=== PATIENT | female | born 1985 | race American Indian/Alaskan Native ===

== ENCOUNTER 2020-02-10 11:40 | Inpatient (IN) | payer SELFPAY ==
--- NOTE | 2020-02-10 11:50 | Event Note ---
ED Screening Note ED Screening Note: This is a 34-year-old female that presents with dizziness, nausea vomiting, left-sided facial tingling/numbness sensation as well as right leg numbness and tingling sensation. Patient denies any trauma or injuries. ExaM; normal neuro exam. Normal strength with no one-sided weakness noted. No facial drooping or slurred speech. Alert and oriented x3 This initial assessment/diagnostic orders/clinical plan/treatment(s) is/are subject to change based on patients health status, clinical progression and re- assessment by fellow clinical providers in the ED. Further treatment and workup at subsequent clinical providers discretion. Patient/guardian urged not to elope from the ED as their condition may be serious if not clinically assessed and managed. Initial orders include: 1-labs 2- UA
--- NOTE | 2020-02-10 12:00 | Emergency Department Report ---
ED General Adult HPI - General Chief complaint: Neuro Symptoms/Deficit Stated complaint: LT FACE NUMB/NAUSEA/DIZZY Time Seen by Provider: 02/10/20 11:49 Source: patient, RN notes reviewed Mode of arrival: Ambulatory Limitations: Physical Limitation - History of Present Illness Initial comments: The patient is a 34-year-old female. She is not known to myself previously. She states that she is not . She denies fever, cough, and exposure to the coronavirus. She states that she is not , and further reports that she has not delivered or given within the past 6 weeks. She does not have any long-term medical problems that she is aware of. She presents to the ER today with a complaint of feeling unsteady and ataxic, since waking up this morning, last night, she felt numbness on her right distal anterior tibial region. She also describes left-sided facial dysesthesias, which are basically resolved. There is no recent chiropractic manipulation, no recent trauma, she has no headache per se, but does describe bilateral pa racervical neck pain. There is no neck stiffness. There is no loss of vision, sore throat, chest pain, abdominal pain. She describes it as a sensation of having consumed alcohol, although she has not consumed alcohol. She is never had this before in the past. She does not have a history of hypertension that she is aware of. -: hour(s) Location: head, right, lower extremity Quality: other Consistency: other Improves with: other Worsens with: other Associated Symptoms: other - Related Data Allergies Allergy/AdvReac Type Severity Reaction Status Date / Time No Known Allergies Allergy Unverified 02/10/20 11:46 ED Review of Systems ROS: Stated complaint: LT FACE NUMB/NAUSEA/DIZZY Other details as noted in HPI Constitutional: denies: fever Eyes: denies: vision change ENT: denies: dental pain, other Respiratory: denies: wheezing Cardiovascular: denies: syncope Gastrointestinal: nausea. denies: abdominal pain Genitourinary: as per HPI Musculoskeletal: as per HPI Skin: as per HPI Neurological: as per HPI Psychiatric: as per HPI Hematological/Lymphatic: as per HPI ED Past Medical Hx - Past Medical History Previous Medical History?: Yes Hx Hypertension: Yes - Surgical History Past Surgical History?: No - Social History Smoking Status: Never Smoker Substance Use Type: None ED Physical Exam - General Limitations: Physical Limitation General appearance: alert, anxious, obese - Head Head exam: Present: atraumatic, normocephalic - Eye Eye exam: Present: normal appearance, PERRL, EOMI, other (Visual acuity intact to finger counting, color perception, reading at a close distance). Absent: nystagmus - ENT ENT exam: Present: normal exam, normal orophraynx, mucous membranes moist, normal external ear exam - Neck Neck exam: Present: normal inspection, full ROM. Absent: tenderness, meningismus - Respiratory Respiratory exam: Present: normal lung sounds bilaterally. Absent: respiratory distress - Cardiovascular Cardiovascular Exam: Present: regular rate, normal rhythm, normal heart sounds. Absent: bradycardia, tachycardia, irregular rhythm, systolic murmur, diastolic murmur, rubs, gallop - GI/Abdominal GI/Abdominal exam: Present: soft. Absent: distended, tenderness, guarding, rebound, rigid, pulsatile mass - Extremities Exam Extremities exam: Present: normal inspection, full ROM, other (2+ pulses noted in the bilateral upper and lower extremities. There is no palpable cord. negative Homans sign. Muscular compartments are soft. The pelvis is stable.). Absent: pedal edema, calf tenderness - Back Exam Back exam: Present: normal inspection, full ROM. Absent: tenderness, CVA tenderness (R), CVA tenderness (L), paraspinal tenderness, vertebral tenderness - Neurological Exam Neurological exam: Present: alert (There is no pronator drift. The patient has past-pointing in the bilateral upper extremities. [id number] is intact bilaterally.), oriented X3 (There is no facial droop. The tongue is midline. The extraocular movements are intact bilaterally. Speaking in complete sentences. Hearing is grossly intact bilaterally. V1, V2, V3 intact bilaterally.), other (No facial droop. Tongue midline. Extraocular movements intact bilaterally. Facial sensation intact to light touch in V1, V2, V3 distribution bilaterally. 5 and a 5 strength in 4 extremities. Sensation intact to light touch in 4 extremities.) - Psychiatric Psychiatric exam: Present: anxious - Skin Skin exam: Present: warm, dry, intact, normal color. Absent: rash ED Course Vital Signs 02/10/20 02/10/20 02/10/20 11:46 12:59 13:15 Temperature 97.8 F Pulse Rate 92 H 92 H 82 Respiratory 18 20 Rate Blood Pressure 256/138 216/121 223/117 O2 Sat by Pulse 96 96 Oximetry - Reevaluation(s) Reevaluation #1: 02/10/20 12:13 Differential diagnosis, including but not limited to: Subacute stroke, hypertensive emergency, posterior reversible hypertensive encephalopathy Assessment and plan: 34-year-old female who endorses right lower extremity numbness starting yesterday, woke up feeling with ataxia today, and subjective left-sided facial numbness, NIH score is is 2 for bilateral upper extremity past-pointing/ataxia, patient presents with wake-up symptoms, and neurologic symptoms started yesterday, therefore, neurologic symptoms present for greater than 4.5 hours, and the patient is not a candidate for TPA. Given extreme hypertension, Cardene drip will be ordered, noncontrast CT scan of the brain is ordered, code stroke called overhead, and we will obtain emergent neurology consultation. Her examination is unlikely to be consistent with a large vessel occlusion. 02/10/20 12:14 Reevaluation #2: 02/10/20 12:35 CT scan of the brain is interpreted as negative for acute findings. Patient interviewed by stroke neurologist, Dr. Teena Mims; she agrees that patient not a TPA candidate, does not require emergent CT angiogram imaging to evaluate for large vessel occlusion, aspirin, statin, aggressive blood pressure control are recommended. Hospital physician, Dr. Irene Moeller to admit Reevaluation #3: 02/10/20 13:13 Blood pressure 215-220, laboratory studies reviewed and appreciated. Patient is amenable to hospitalization at this time. Verbal order given to her nursing team to hold Cardene, initiate hydralazine, and reassess. Reevaluation #4: 02/10/20 13:30 History, physical, radiology findings, laboratory studies discussed with the hospital physician, Dr. Irene Moeller, who accepts the patient to the medical service. He indicates that he will further manage the patient's hypertension after hydralazine is administered in the emergency room. ED Medical Decision Making - Lab Data Result diagrams: 02/10/20 12:11 02/10/20 12:11 Vital Signs 02/10/20 11:46 Temperature 97.8 F Pulse Rate 92 H Respiratory 18 Rate Blood Pressure 256/138 O2 Sat by Pulse 96 Oximetry - EKG Data 02/10/20 13:04 Sinus rhythm, 91 bpm, normal axis, QTC 494 ms, poor R wave progression, left ventricular hypertrophy, atrial enlargement, the EKG is abnormal, numerous T wave abnormalities, the EKG is not consistent with a STEMI, the patient is not having chest pain - Radiology Data Radiology results: pending, report reviewed, image reviewed Print Report Referring Physician: SANDOR DAY Patient Name: RANDY PRUETT Date of : 1985 Sex: Female Report Date: 2020-02-10 Report Status: Finalized Findings [facility] [address] [place] [address] Cat Scan Report Signed Patient: RANDY PRUETT MR#: [id number] : 1985 Acct:[id number] Age/Sex: 34 / F ADM Date: 02/10/20 Loc: ED Attending Dr: Ordering Physician: SANDOR DAY NP Date of Service: 02/10/20 Procedure(s): CT head/brain wo con Accession Number(s): [id number] cc: SANDOR DAY NP CT head/brain wo con INDICATION / CLINICAL INFORMATION: 34 years Female; MAIN: CODE STROKE CALL [phone]. TECHNIQUE: Routine CT head without contrast. All CT scans at this location are performed using CT dose reduction for ALARA by means of automated exposure control. COMPARISON: None. FINDINGS: BRAIN / INTRACRANIAL CONTENTS: Small focus of decreased attenuation seen in the anterior gangliocapsular region on the left, almost in the corpus striatal pattern. Acute/subacute ischemic area cannot be excluded without diffusion imaging by MRI. Otherwise, no acute hemorrhage, mass effect, midline shift, hydrocephalus, or acute, large territorial infarct. No chronic infarct or atrophy appreciated. Nonspecific white matter disease suggested in the white matter of the frontal lobes. CRANIOCERVICAL JUNCTION: No significant abnormality. ORBITS: No significant abnormality of visualized orbits. SINUSES / MASTOIDS: No significant abnormality the visualized paranasal sinuses or mastoid air cells. ADDITIONAL FINDINGS: None. IMPRESSION: 1. No focal mass, hemorrhage, hydrocephalus, or acute, large territorial infarct. 2. Small acute/subacute area of ischemia near the left gangliocapsular region cannot entirely be excluded. Follow-up with diffusion imaging by MRI, as clinically warranted. This exam was performed as part of a code stroke protocol. The exam was completed on 02/10/2020 11:40 AM. The exam was reviewed at 11:[address] Valdivia was notified at 11:46 AM. Signer Name: Kwesi Seth MD, III Signed: 02/10/2020 12:48 PM Workstation Name: [id number] Transcribed By: HR Dictated By: Kwesi Seth MD Electronically Authenticated By: Kwesi Seth MD Signed Date/Time: 02/10/201247 DD/ 1243 Critical Care Time: Yes Critical care time in (mins) excluding proc time.: 60 Critical care attestation.: If time is entered above; I have spent that time in minutes in the direct care of this critically ill patient, excluding procedure time. ED Disposition Clinical Impression: Hypertensive emergency, Ataxia, Left facial numbness, Right leg numbness, CVA (cerebral vascular accident), Hypokalemia, Hypomagnesemia Disposition: DC-[id number] OP ADMIT IP TO THIS HOSP Is pt being admited?: Yes Condition: Fair Instructions: Hypertension (ED) - Assessment Assessment Interval: Baseline - Level of Consciousness 1a. Level of Consciousness: alert/keenly responsive - LOC Questions 1b. LOC Questions: answers both correctly - LOC Command 1c. LOC Commands: performs tasks correctly - Best Gaze 2. Best Gaze: normal - Visual 3. Visual: no visual loss - Facial Palsy 4. Facial Palsy: normal symmetrical movement - Motor Arm 5a. Motor Arm Left: no drift 5b. Motor Arm Right: no drift - Motor Leg 6a. Motor Leg Left: no drift 6b. Motor Leg Right: no drift - Limb Ataxia 7. Limb Ataxia: present 2 limbs - Sensory 8. Sensory: normal - Best Language 9. Best Language: no aphasia - Dysarthria 10. Dysarthria: normal - Extinction and Inattention 11. Extinction/Inattention: no abnormality - Scoring Total Score: 2 Stroke Severity: Minor Stroke
[2020-02-10] MEDS ORDERED: METOCLOPRAMIDE 10 MG/2 ML INJ IV ONE (12:08)
[2020-02-10 12:19] LABS: Basophils # (Auto) 0.1 K/mm3 (0.0-0.1); Basophils % (Auto) 0.8 % (0.0-1.8); Eosinophils % (Auto) 0.2 % (0.0-4.3); Hematocrit 39.8 % (30.3-42.9); Hemoglobin 13.6 gm/dl (10.1-14.3); Lymphocytes # (Auto) 1.3 K/mm3 (1.2-5.4); Mean Corpuscular HGB Conc 34 % (30-34); Mean Corpuscular Volume 85 fl (79-97); Monocytes # (Auto) 0.4 K/mm3 (0.0-0.8); Monocytes % (Auto) 4.6 % (0.0-7.3); Platelet Count 222 K/mm3 (140-440); Red Blood Count 4.68 M/mm3 (3.65-5.03)
[2020-02-10 12:31] LABS: INR 0.92 (0.87-1.13)
[2020-02-10 12:32] LABS: Partial Thromboplastin Time 25.4 Sec. (24.2-36.6); Thrombin Time 16.1 Sec. (15.1-19.6)
--- NOTE | 2020-02-10 12:38 | Emergency Department Report ---
ED Neuro Deficit HPI - General Chief Complaint: Neuro Symptoms/Deficit Stated Complaint: LT FACE NUMB/NAUSEA/DIZZY Time Seen by Provider: 02/10/20 11:49 Source: patient, RN notes reviewed Mode of arrival: Ambulatory Limitations: Physical Limitation - History of Present Illness Initial Comments: [facility] Date of Service: 02/10/2020 12:09:49 Impression: Small Vessel Infarct Comments/Sign-Out: 34-year-old female with history of hypertension not on any medications due to insurance issues. She started complaining of right leg numbness last night, went to bed and woke up with left facial numbness. She does not have any weakness, blurry vision or speech difficulty. Her NIH stroke scale is zero. There are no signs of large vessel occlusion. She is not a TPA candidate as she is outside the window.CAT scan is negative for bleed.she will be admitted for stroke work up . Mechanism of Stroke: Possible Thromboembolic Metrics: Last Known Well: 02/09/2020 12:00:00 [employer] Notification Time: 02/10/2020 12:08:37 Arrival Time: 02/10/2020 11:46:00 Stamp Time: 02/10/2020 12:09:49 Time First Login Attempt: 02/10/2020 12:13:48 Video Start Time: 02/10/2020 12:13:48 Symptoms: left face and right leg numbness NIHSS Start Assessment Time: 02/10/2020 12:18:15 Patient is not a candidate for tPA. Patient was not deemed candidate for tPA thrombolytics because of Last Well Known Above 4.5 Hours. Video End Time: 02/10/2020 12:33:05 CT head showed no acute hemorrhage or acute core infarct. Clinical Presentation is not Suggestive of Large Vessel Occlusive Disease Radiologist was not called back for review of advanced imaging because not indicated ED Physician notified of diagnostic impression and management plan on 02/10/2020 12:33:06 History of Present Illness: Patient is a 34 year old Female. Patient was brought by private transportation with symptoms of left face and right leg numbness 34-year-old female with past medical history significant for hypertension not on any medications due to insurance problems. She was last known normal yesterday night when she complained of right leg numbness after which she went to bed at about midnight. She woke up at about 8 AM with left facial numbness. There has been no change in the symptoms since the onset. She also has mild dizziness and nausea. Blood pressure was 256/138 upon arrival. NIH stroke scale is zero. There are no signs of large vessel occlusion.she Is not a TPA candidate as she is outside the window. CT head showed no acute hemorrhage or acute core infarct. Last seen normal was beyond 4.5 hours of presentation. There is no history of hemorrhagic complications or intracranial hemorrhage. There is no history of Recent Anticoagulants. There is no history of recent major surgery. There is no history of recent stroke. Examination: 1A: Level of Consciousness - Alert; keenly responsive + 0 1B: Ask Month and Age - Both Questions Right + 0 1C: Blink Eyes & Squeeze Hands - Performs Both Tasks + 0 2: Test Horizontal Extraocular Movements - Normal + 0 3: Test Visual Singleton - No Visual Loss + 0 4: Test Facial Palsy (Use Grimace if Obtunded) - Normal symmetry + 0 5A: Test Left Arm Motor Drift - No Drift for 10 Seconds + 0 5B: Test Right Arm Motor Drift - No Drift for 10 Seconds + 0 6A: Test Left Leg Motor Drift - No Drift for 5 Seconds + 0 6B: Test Right Leg Motor Drift - No Drift for 5 Seconds + 0 7: Test Limb Ataxia (FNF/Heel-Alvares) - No Ataxia + 0 8: Test Sensation - Normal; No sensory loss + 0 9: Test Language/Aphasia - Normal; No aphasia + 0 10: Test Dysarthria - Normal + 0 11: Test Extinction/Inattention - No abnormality + 0 NIHSS Score: 0 Patient was informed the Neurology Consult would happen via TeleHealth consult by way of interactive audio and video telecommunications and consented to receiving care in this manner. Due to the immediate potential for life-threatening deterioration due to underlying acute neurologic illness, I spent 35 minutes providing critical care. This time includes time for face to face visit via telemedicine, review of medical records, imaging studies and discussion of findings with providers, the patient and/or family. Dr Florentino Dickinson [employer] Case [id number] - Related Data Allergies/Adverse Reactions: Allergies Allergy/AdvReac Type Severity Reaction Status Date / Time No Known Allergies Allergy Unverified 02/10/20 11:46 ED Review of Systems ROS: Stated complaint: LT FACE NUMB/NAUSEA/DIZZY Other details as noted in HPI Constitutional: denies: fever Eyes: denies: vision change ENT: denies: dental pain, other Respiratory: denies: wheezing Cardiovascular: denies: syncope Gastrointestinal: nausea. denies: abdominal pain Genitourinary: as per HPI Musculoskeletal: as per HPI Skin: as per HPI Neurological: as per HPI Psychiatric: as per HPI Hematological/Lymphatic: as per HPI ED Past Medical Hx - Past Medical History Previous Medical History?: Yes Hx Hypertension: Yes - Surgical History Past Surgical History?: No - Social History Smoking Status: Never Smoker Substance Use Type: None ED Neuro Physical Exam - General Limitations: Physical Limitation General appearance: alert, anxious, obese Suspected Stroke: Yes - NIHSS Assessment Interval: Baseline 1a. Level of Consciousness: alert/keenly responsive 1b. LOC Questions: answers both correctly 1c. LOC Commands: performs tasks correctly 2. Best Gaze: normal 3. Visual: no visual loss 4. Facial Palsy: normal symmetrical movement 5b. Motor Arm Right: no drift 5a. Motor Arm Left: no drift 6a. Motor Leg Left: no drift 6b. Motor Leg Right: no drift 7. Limb Ataxia: absent 8. Sensory: normal 9. Best Language: no aphasia 10. Dysarthria: normal 11. Extinction/Inattention: no abnormality Total Score: 0 Stroke Severity: No Stroke Symptoms ED Course Vital Signs 02/10/20 11:46 Temperature 97.8 F Pulse Rate 92 H Respiratory 18 Rate Blood Pressure 256/138 O2 Sat by Pulse 96 Oximetry - Lab Data Result diagrams: 02/10/20 12:11 Lab Results 02/10/20 02/10/20 02/10/20 Range/Units 12:11 12:11 12:11 WBC 8.5 (4.5-11.0) K/mm3 RBC 4.68 (3.65-5.03) M/mm3 Hgb 13.6 (10.1-14.3) gm/dl Hct 39.8 (30.3-42.9) % MCV 85 (79-97) fl MCH 29 (28-32) pg MCHC 34 (30-34) % RDW 15.0 (13.2-15.2) % Plt Count 222 (140-440) K/mm3 Lymph % (Auto) 15.0 (13.4-35.0) % Emmet % (Auto) 4.6 (0.0-7.3) % Eos % (Auto) 0.2 (0.0-4.3) % Baso % (Auto) 0.8 (0.0-1.8) % Lymph # 1.3 (1.2-5.4) K/mm3 Emmet # 0.4 (0.0-0.8) K/mm3 Eos # 0.0 (0.0-0.4) K/mm3 Baso # 0.1 (0.0-0.1) K/mm3 Seg Neutrophils % 79.4 H (40.0-70.0) % Seg Neutrophils # 6.8 (1.8-7.7) K/mm3 PT 12.5 (12.2-14.9) Sec. INR 0.92 (0.87-1.13) APTT 25.4 (24.2-36.6) Sec. Thrombin Time 16.1 (15.1-19.6) Sec. POC Glucose (70-105) HCG, Qual Negative (Negative) 02/10/20 Range/Units 12:28 WBC (4.5-11.0) K/mm3 RBC (3.65-5.03) M/mm3 Hgb (10.1-14.3) gm/dl Hct (30.3-42.9) % MCV (79-97) fl MCH (28-32) pg MCHC (30-34) % RDW (13.2-15.2) % Plt Count (140-440) K/mm3 Lymph % (Auto) (13.4-35.0) % Emmet % (Auto) (0.0-7.3) % Eos % (Auto) (0.0-4.3) % Baso % (Auto) (0.0-1.8) % Lymph # (1.2-5.4) K/mm3 Emmet # (0.0-0.8) K/mm3 Eos # (0.0-0.4) K/mm3 Baso # (0.0-0.1) K/mm3 Seg Neutrophils % (40.0-70.0) % Seg Neutrophils # (1.8-7.7) K/mm3 PT (12.2-14.9) Sec. INR (0.87-1.13) APTT (24.2-36.6) Sec. Thrombin Time (15.1-19.6) Sec. POC Glucose 119 H (70-105) HCG, Qual (Negative) Critical care attestation.: If time is entered above; I have spent that time in minutes in the direct care of this critically ill patient, excluding procedure time. ED Disposition Clinical Impression: CVA (cerebral vascular accident) Disposition: 09 OP ADMIT IP TO THIS HOSP Is pt being admited?: Yes Does the pt Need Aspirin: Yes Condition: Fair Instructions: Hypertension (ED)
[2020-02-10] MEDS ORDERED: ASPIRIN 325 MG TAB PO ONE (12:45)
--- NOTE | 2020-02-10 12:52 | Cat Scan Report ---
CT head/brain wo con INDICATION / CLINICAL INFORMATION: 34 years Female; MAIN: CODE STROKE CALL [phone]. TECHNIQUE: Routine CT head without contrast. All CT scans at this location are performed using CT dos e reduction for ALARA by means of automated exposure control. COMPARISON: None. FINDINGS: BRAIN / INTRACRANIAL CONTENTS: Small focus of decreased attenuation seen in the anterior gangliocapsu lar region on the left, almost in the corpus striatal pattern. Acute/subacute ischemic area cannot be excluded without diffusion imaging by MRI. Otherwise, no acute hemorrhage, mass effect, midline shift, hydrocephalus, or acute, large territori al infarct. No chronic infarct or atrophy appreciated. Nonspecific white matter disease suggested in the white matter of the frontal lobes. CRANIOCERVICAL JUNCTION: No significant abnormality. ORBITS: No significant abnormality of visualized orbits. SINUSES / MASTOIDS: No significant abnormality the visualized paranasal sinuses or mastoid air cells. ADDITIONAL FINDINGS: None. IMPRESSION: 1. No focal mass, hemorrhage, hydrocephalus, or acute, large territorial infarct. 2. Small acute/subacute area of ischemia near the left gangliocapsular region cannot entirely be excl uded. Follow-up with diffusion imaging by MRI, as clinically warranted. This exam was performed as part of a code stroke protocol. The exam was completed on 02/10/2020 11:40 AM. The exam was reviewed at 11:[address] Valdivia was notified at 11:46 AM. Signer Name: Kwesi Seth MD, III Signed: 02/10/2020 12:48 PM Workstation Name[id number]
[2020-02-10 12:53] LABS: Alanine Aminotransferase 9 units/L (7-56); Albumin 4.6 g/dL (3.9-5); BUN/Creatinine Ratio 21; Blood Urea Nitrogen 15 mg/dL (7-17); Calcium 9.4 mg/dL (8.4-10.2); Hemolysis Index 1
[2020-02-10] MEDS ORDERED: niCARdipine 50 MG in SODIUM CHLORIDE 0.9% 250ML 230 ML IV SCH (13:00)
[2020-02-10] MEDS ORDERED: MAGNESIUM SULFATE 2 GM/50 ML BAG IV ONE ×2 (13:05→17:14)
[2020-02-10] MEDS ORDERED: hydrALAZINE 20 MG/1 ML INJ IV ONE (13:09)
[2020-02-10] MEDS: POTASSIUM CHLORIDE 10 MEQ 10 MEQ/100 ML BAG IV SCH ×2 (14:26→16:27)
[2020-02-10] MEDS ORDERED: oxyCODONE /ACETAMINOPHEN 5-325MG TAB PO PRN (16:07)
[2020-02-10] MEDS ORDERED: ACETAMINOPHEN 325 MG TAB PO PRN (16:07)
[2020-02-10] MEDS ORDERED: HYDROmorphone 1 MG/1 ML INJ IV PRN (16:07)
[2020-02-10] MEDS ORDERED: POTASSIUM CHLORIDE 10 MEQ 10 MEQ/100 ML BAG IV ONE (16:15)
[2020-02-10] MEDS ORDERED: hydrALAZINE 20 MG/1 ML INJ IV PRN (16:22)
[2020-02-10] MEDS ORDERED: amLODIPine 5 MG TAB ONE (16:47)
[2020-02-10] MEDS ORDERED: ASPIRIN 81 MG TAB CHEW ONE (16:47)
[2020-02-10] MEDS ORDERED: carvediloL 6.25 MG TAB ONE (16:48)
[2020-02-10] MEDS ORDERED: VALSARTAN 160MG TAB ONE (16:48)
--- NOTE | 2020-02-10 16:57 | History and Physical Report ---
History of Present Illness Date of examination: 02/10/20 Date of admission: 02/10/20 13:31 Chief complaint: Dizziness and left facial numbness and left lower extremity numbness for the last 12 hours History of present illness: 34-year-old female with history of hypertension and noncompliant because of inability to access healthcare providers comes in for feeling unsteady and numbness of the right lower extremity since a.m. Patient thinks that it is because of her high blood pressure. Patient also has some headache but no blurred vision. No nasal regurgitation of fluids. No diplopia. No facial paralysis. Has left-sided facial numbness. Patient able to walk. No fever or exposure to coronavirus patients. No chest pain. Past Medical History Previous Medical History?: Yes Hx Hypertension: Yes Noncompliant with medicines Surgical History Past Surgical History?: No Social History Smoking Status: Never Smoker Substance Use Type: None Family history Htn Review of Systems ROS: Left facial numbness and headache. Also left lower extremity numbness. Constitutional no weight loss or weight gain no fever or chills HEENT no sore throat no post nasal drip no diplopia Neck no neck stiffness no lymph gland enlargement Chest and lungs no shortness of breath cough or wheezing CVS no chest pain no diaphoresis no palpitations GI no nausea no vomiting no diarrhea Genitourinary system no dysuria no flank pain Musculoskeletal system no muscle pains no joint pains [employer] as mentioned in HPI Skin no rash no itching Psychiatric no depression no homicidal or suicidal tendencies Hematologic no lymphedema or bruising Endocrine no polydipsia no polyuria no cold intolerance no heat intolerance Medications and Allergies Allergies Allergy/AdvReac Type Severity Reaction Status Date / Time No Known Allergies Allergy Unverified 02/10/20 11:46 Home Medications Medication Instructions Recorded Confirmed Last Taken Type No Known Home Medications [No 02/10/20 02/10/20 Unknown History Reported Home Medications] Active Meds: Active Medications Acetaminophen (Tylenol) 650 mg PO Q4H PRN PRN Reason: Pain MILD(1-3)/Fever >100.5/FINN Amlodipine Besylate (Amlodipine) 5 mg PO QDAY [facility] Aspirin (Baby Aspirin) 81 mg PO QDAY [facility] Carvedilol (Coreg) 12.5 mg PO Q12H [facility] Famotidine (Pepcid) 20 mg PO BID [facility] Hydralazine HCl (Apresoline) 10 mg IV Q3H PRN PRN Reason: Blood Pressure Hydromorphone HCl (Dilaudid) 0.5 mg IV Q3H PRN PRN Reason: Pain , Severe (7-10) Nicardipine HCl 50 mg/ Sodium (Chloride) 250 mls @ 25 mls/hr IV TITR [facility]; Protocol Magnesium Oxide (Mag-Ox) 400 mg PO QDAY [facility] Ondansetron HCl (Zofran) 4 mg IV Q8H PRN PRN Reason: Nausea And Vomiting Oxycodone/Acetaminophen (Percocet 5/325) 1 tab PO Q6H PRN PRN Reason: Pain, Moderate (4-6) Potassium Chloride (K-Dur) 40 meq PO ONCE ONE Stop: 02/10/20 16:24 Sodium Chloride (Sodium Chloride Flush Syringe 10 Ml) 10 ml IV BID [facility] Sodium Chloride (Sodium Chloride Flush Syringe 10 Ml) 10 ml IV PRN PRN PRN Reason: LINE FLUSH Valsartan (Diovan) 160 mg PO Q12H [facility] Exam - Constitutional Vitals: Temp Pulse Resp BP Pulse Ox 97.8 F 92 H 22 205/106 92 02/10/20 11:46 02/10/20 15:30 02/10/20 15:30 02/10/20 15:30 02/10/20 15:30 General appearance: Present: no acute distress, well-nourished - EENT Eyes: Present: PERRL ENT: hearing intact, clear oral mucosa - Neck Neck: Present: supple, normal ROM - Respiratory Respiratory effort: normal Respiratory: bilateral: CTA - Cardiovascular Heart rate: 88 Rhythm: regular Heart Sounds: Present: S1 & S2. Absent: rub, click - Extremities Extremities: no ischemia, pulses intact, pulses symmetrical, No edema Peripheral Pulses: within normal limits - Abdominal General gastrointestinal: Present: soft, non-tender, non-distended, normal bowel sounds Female genitourinary: Present: normal - Rectal Rectal Exam: deferred - Integumentary Integumentary: Present: clear, warm, dry - Musculoskeletal Musculoskeletal: gait normal, strength equal bilaterally - Psychiatric Psychiatric: appropriate mood/affect, intact judgment & insight - Neurologic Neurologic: CNII-XII intact, moves all extremities - Allied Health Allied health notes reviewed: nursing, case management TOPHER score - Topher Score Age > 65: (0) No Aspirin use within the Past 7 Days: (0) No 3 or more CAD Risk Factors: (0) No 2 or more Angina events in past 24 hrs: (0) No Known CAD with more than 50% Stenosis: (0) No Elevated Cardiac Markers: (0) No ST Deviation Greater than 0.5mm: (0) No TOPHER Score: 0 Results - Labs CBC & Chem 7: 02/10/20 12:11 02/11/20 03:28 Labs: Laboratory Last Values WBC 8.5 K/mm3 (4.5-11.0) 02/10/20 12:11 RBC 4.68 M/mm3 (3.65-5.03) 02/10/20 12:11 Hgb 13.6 gm/dl (10.1-14.3) 02/10/20 12:11 Hct 39.8 % (30.3-42.9) 02/10/20 12:11 MCV 85 fl (79-97) 02/10/20 12:11 MCH 29 pg (28-32) 02/10/20 12:11 MCHC 34 % (30-34) 02/10/20 12:11 RDW 15.0 % (13.2-15.2) 02/10/20 12:11 Plt Count 222 K/mm3 (140-440) 02/10/20 12:11 Lymph % (Auto) 15.0 % (13.4-35.0) 02/10/20 12:11 Major % (Auto) 4.6 % (0.0-7.3) 02/10/20 12:11 Eos % (Auto) 0.2 % (0.0-4.3) 02/10/20 12:11 Baso % (Auto) 0.8 % (0.0-1.8) 02/10/20 12:11 Lymph # 1.3 K/mm3 (1.2-5.4) 02/10/20 12:11 Major # 0.4 K/mm3 (0.0-0.8) 02/10/20 12:11 Eos # 0.0 K/mm3 (0.0-0.4) 02/10/20 12:11 Baso # 0.1 K/mm3 (0.0-0.1) 02/10/20 12:11 Seg Neutrophils % 79.4 % (40.0-70.0) H 02/10/20 12:11 Seg Neutrophils # 6.8 K/mm3 (1.8-7.7) 02/10/20 12:11 PT 12.5 Sec. (12.2-14.9) 02/10/20 12:11 INR 0.92 (0.87-1.13) 02/10/20 12:11 APTT 25.4 Sec. (24.2-36.6) 02/10/20 12:11 Thrombin Time 16.1 Sec. (15.1-19.6) 02/10/20 12:11 Sodium 135 mmol/L (137-145) L 02/10/20 12:11 Potassium 3.2 mmol/L (3.6-5.0) L 02/10/20 12:11 Chloride 97.3 mmol/L (98-107) L 02/10/20 12:11 Carbon Dioxide 20 mmol/L (22-30) L 02/10/20 12:11 Anion Gap 21 mmol/L 02/10/20 12:11 BUN 15 mg/dL (7-17) 02/10/20 12:11 Creatinine 0.7 mg/dL (0.7-1.2) 02/10/20 12:11 Estimated GFR > 60 ml/min 02/10/20 12:11 BUN/Creatinine Ratio 21 % 02/10/20 12:11 Glucose 169 mg/dL (65-100) H 02/10/20 12:11 POC Glucose 119 (70-105) H 02/10/20 12:28 Calcium 9.4 mg/dL (8.4-10.2) 02/10/20 12:11 Magnesium 1.60 mg/dL (1.7-2.3) L 02/10/20 12:11 Total Bilirubin 0.40 mg/dL (0.1-1.2) 02/10/20 12:11 AST 12 units/L (5-40) 02/10/20 12:11 ALT 9 units/L (7-56) 02/10/20 12:11 Alkaline Phosphatase 75 units/L (35-129) 02/10/20 12:11 Total Creatine Kinase 101 units/L (30-135) 02/10/20 12:11 Total Protein 8.5 g/dL (6.3-8.2) H 02/10/20 12:11 Albumin 4.6 g/dL (3.9-5) 02/10/20 12:11 Albumin/Globulin Ratio 1.2 % 02/10/20 12:11 HCG, Qual Negative (Negative) 02/10/20 12:11 Short CBC 02/10/20 Range/Units 12:11 WBC 8.5 (4.5-11.0) K/mm3 Hgb 13.6 (10.1-14.3) gm/dl Hct 39.8 (30.3-42.9) % Plt Count 222 (140-440) K/mm3 BMP 02/10/20 12:11 Sodium 135 L Potassium 3.2 L Chloride 97.3 L Carbon Dioxide 20 L BUN 15 Creatinine 0.7 Glucose 169 H Calcium 9.4 Cardiac Enzymes 02/10/20 Range/Units 12:11 Total Creatine Kinase 101 (30-135) units/L Liver Function 02/10/20 Range/Units 12:11 Total Bilirubin 0.40 (0.1-1.2) mg/dL AST 12 (5-40) units/L ALT 9 (7-56) units/L Alkaline Phosphatase 75 (35-129) units/L Albumin 4.6 (3.9-5) g/dL - Imaging and Cardiology EKG: report reviewed (Normal sinus rhythm LVH by voltage criteria) CT Scan - head: report reviewed Imaging and Cardiology: CT head IMPRESSION: 1. No focal mass, hemorrhage, hydrocephalus, or acute, large territorial infarct. 2. Small acute/subacute area of ischemia near the left gangliocapsular region cannot entirely be excluded. Follow-up with diffusion imaging by MRI, as clinically warranted. Sanz/IV: IV Catheter Type [Right INT / Saline Lock Forearm] Assessment and Plan Advance Directives: Yes (Full code) VTE prophylaxis?: Chemical Plan of care discussed with patient/family: Yes - Patient Problems (1) Hypertensive emergency Current Visit: Yes Status: Acute Plan to address problem: Patient initiated on valsartan 160 mg every 12, carvedilol 12.5 mg every 12 and amlodipine 5 mg p.o. every 24. Patient also initiated on IV hydralazine 10 mg every 3 as needed for blood pressure more than 160/100 Patient counseled about taking blood pressure medications regularly and the complications of not taking blood pressure medicines. Patient was advised about possible heart failure and end-stage renal disease as complications of noncompliance. Patient also was told about [facility] clinic and hence of her clinic available in the community for continuation of prescriptions. The prescription should not cost much. (2) Left facial numbness Current Visit: Yes Status: Acute Plan to address problem: There is slight abnormality on the left ganglial capsular region. Radiologist could not exclude small subacute infarct. We will get brain MRI. (3) TIA (transient ischemic attack) Current Visit: Yes Status: Acute Plan to address problem: Unlikely. Left facial numbness probably secondary to the hive blood pressure re adings. We will get MRI to rule out any small subacute infarct. Also get carotid duplex scan. No echocardiogram or stress test at this point. (4) Hypokalemia Current Visit: Yes Status: Acute Plan to address problem: Potassium supplemented (5) Hypomagnesemia Current Visit: Yes Status: Acute Plan to address problem: Magnesium supplemented (6) Hyperglycemia Current Visit: Yes Status: Acute Plan to address problem: We will get A1c and start metformin Patient may have borderline diabetes To be consulted by primary team if necessary (7) Hyponatremia Current Visit: Yes Status: Acute Plan to address problem: Mild (8) DVT prophylaxis Current Visit: Yes Status: Acute Plan to address problem: On heparin and GI prophylaxis
[2020-02-10] MEDS ORDERED: POTASSIUM CHLORIDE ER 20 MEQ TAB PO ONE ×2 (17:00→17:13)
[2020-02-10] MEDS: ASPIRIN 81 MG TAB CHEW PO SCH (17:02)
[2020-02-10] MEDS: amLODIPine 5 MG TAB PO SCH (17:02)
[2020-02-10] MEDS: VALSARTAN 160MG TAB PO SCH ×2 (17:03→22:26)
[2020-02-10] MEDS: carvediloL 12.5 MG TAB PO SCH (17:03)
[2020-02-10] MEDS: POTASSIUM CHLORIDE ER 20 MEQ TAB PO ONE ×2 (17:06→17:13)
--- NOTE | 2020-02-10 19:01 | Magnetic Resonance Report ---
MR brain wo con INDICATION / CLINICAL INFORMATION: 34 years Female; MAIN: TIA, DIZZINESS, WEAKNESS. TECHNIQUE: Multiplanar, multisequence MR images of the brain were obtained. COMPARISON: None available. FINDINGS: BRAIN / INTRACRANIAL CONTENTS: No acute hemorrhage, mass effect, midline shift, hydrocephalus, or acu te, large territorial infarct. No chronic infarct or atrophy. Old, small lacunar-type infarct suggested in the lateral thalamic region on the right. There is minim al involvement of the gangliocapsular region on the left, extending into the periventricular white ma tter superiorly. This finding is chronic in age. There are mild areas of increased signal intensity on FLAIR imaging in the white matter of the cerebr al hemispheres. These are nonspecific findings and may be related to microangiopathy (hypertension, d iabetes, atherosclerosis). Minimal pontine disease noted as well. Demyelinating disease might be cons ideration. CRANIOCERVICAL JUNCTION: No significant abnormality. VASCULAR FLOW-VOIDS: No significant abnormality. ORBITS: No significant abnormality of visualized orbits. SINUSES / MASTOIDS: Minimal mucosal thickening seen in the ethmoids and right mastoid region. ADDITIONAL FINDINGS: Prominent soft tissue is seen in the roof the nasopharynx, presumably related to reactive adenoidal tissue. Please clinically correlate. IMPRESSION: 1. No focal mass, hemorrhage, hydrocephalus, or acute ischemia. 2. Nonspecific white matter disease noted, as described above. Signer Name: Kwesi Seth MD, III Signed: 02/10/2020 6:56 PM Workstation Name: [id number]
[2020-02-10] MEDS: MAGNESIUM OXIDE 400 MG TAB PO SCH (19:21)
[2020-02-10] MEDS ORDERED: hydrALAZINE 20 MG/1 ML INJ ONE (19:25)
[2020-02-10] MEDS ORDERED: ONDANSETRON 4 MG/2 ML INJ ONE (19:46)
[2020-02-10] MEDS: ONDANSETRON 4 MG/2 ML INJ IV PRN (19:47)
[2020-02-10] MEDS: FAMOTIDINE 20 MG TAB PO SCH (22:26)
[2020-02-10] MEDS: HEPARIN 5,000 UNIT/1 ML VIAL SUB-Q SCH (22:27)
[2020-02-10] MEDS: INSULIN LISPRO 100 UNIT/ML SUB-Q SCH (22:28)
[2020-02-11 04:44] LABS: Alanine Aminotransferase 8 units/L (7-56); Albumin 4.5 g/dL (3.9-5); BUN/Creatinine Ratio 17; Blood Urea Nitrogen 15 mg/dL (7-17); Calcium 8.8 mg/dL (8.4-10.2); Hemolysis Index 8
--- NOTE | 2020-02-11 08:18 | Progress Note ---
Assessment and Plan Assessment and plan: Hypertensive emergency Patient initiated on valsartan 160 mg every 12, carvedilol 12.5 mg every 12 and amlodipine 5 mg p.o. every 24. Patient also initiated on IV hydralazine 10 mg every 3 as needed for blood pressure more than 160/100 Patient counseled about taking blood pressure medications regularly and the complications of not taking blood pressure medicines. Patient was advised about possible heart failure and end-stage renal disease as complications of noncompliance. Patient also was told about [facility] and hence of her clinic available in the community for continuation of prescriptions. The prescription should not cost much. Dizziness Neuro to see MRI neg for stroke Left facial numbness MRI Brain , negative for stroke Hypokalemia Potassium supplemented Hypomagnesemia Magnesium supplemented Hyperglycemia We will get A1c and start metformin Patient may have borderline diabetes Hyponatremia Mild DVT prophylaxis On heparin and GI prophylaxis History Interval history: Dizziness headache left sided numbness Hospitalist Physical - Physical exam Narrative exam: GEN: Not in acute distress, morbid obese, lying in bed HEENT: Normocephalic, atraumatic, Neck: supple, No JVD Lungs: Clear to auscultation bilaterally, heart;S1 and S2 reg, no murmurs, rubs or gallop Abd:soft, non tender, non distended, normal bowel sounds, Ext: No edema, no clubbing, no cyanosis, Neuro: Awake,alert,oriented X3 , no focal signs, - Constitutional Vitals: Temp Pulse Resp BP Pulse Ox 98.7 F 104 H 18 156/94 96 02/11/20 07:36 02/11/20 07:50 02/11/20 07:36 02/11/20 07:36 02/11/20 07:50 General appearance: Present: no acute distress, well-nourished TOPHER score - Topher Score Age > 65: (0) No Aspirin use within the Past 7 Days: (0) No 3 or more CAD Risk Factors: (0) No 2 or more Angina events in past 24 hrs: (0) No Known CAD with more than 50% Stenosis: (0) No Elevated Cardiac Markers: (0) No ST Deviation Greater than 0.5mm: (0) No TOPHER Score: 0 Results - Labs CBC & Chem 7: 02/10/20 12:11 02/11/20 03:28 Labs: Laboratory Last Values WBC 8.5 K/mm3 (4.5-11.0) 02/10/20 12:11 RBC 4.68 M/mm3 (3.65-5.03) 02/10/20 12:11 Hgb 13.6 gm/dl (10.1-14.3) 02/10/20 12:11 Hct 39.8 % (30.3-42.9) 02/10/20 12:11 MCV 85 fl (79-97) 02/10/20 12:11 MCH 29 pg (28-32) 02/10/20 12:11 MCHC 34 % (30-34) 02/10/20 12:11 RDW 15.0 % (13.2-15.2) 02/10/20 12:11 Plt Count 222 K/mm3 (140-440) 02/10/20 12:11 Lymph % (Auto) 15.0 % (13.4-35.0) 02/10/20 12:11 [place] % (Auto) 4.6 % (0.0-7.3) 02/10/20 12:11 Eos % (Auto) 0.2 % (0.0-4.3) 02/10/20 12:11 Baso % (Auto) 0.8 % (0.0-1.8) 02/10/20 12:11 Lymph # 1.3 K/mm3 (1.2-5.4) 02/10/20 12:11 [place] # 0.4 K/mm3 (0.0-0.8) 02/10/20 12:11 Eos # 0.0 K/mm3 (0.0-0.4) 02/10/20 12:11 Baso # 0.1 K/mm3 (0.0-0.1) 02/10/20 12:11 Seg Neutrophils % 79.4 % (40.0-70.0) H 02/10/20 12:11 Seg Neutrophils # 6.8 K/mm3 (1.8-7.7) 02/10/20 12:11 PT 12.5 Sec. (12.2-14.9) 02/10/20 12:11 INR 0.92 (0.87-1.13) 02/10/20 12:11 APTT 25.4 Sec. (24.2-36.6) 02/10/20 12:11 Thrombin Time 16.1 Sec. (15.1-19.6) 02/10/20 12:11 Sodium 132 mmol/L (137-145) L 02/11/20 03:28 Potassium 4.1 mmol/L (3.6-5.0) D 02/11/20 03:28 Chloride 97.3 mmol/L (98-107) L 02/11/20 03:28 Carbon Dioxide 23 mmol/L (22-30) 02/11/20 03:28 Anion Gap 16 mmol/L 02/11/20 03:28 BUN 15 mg/dL (7-17) 02/11/20 03:28 Creatinine 0.9 mg/dL (0.7-1.2) 02/11/20 03:28 Estimated GFR > 60 ml/min 02/11/20 03:28 BUN/Creatinine Ratio 17 % 02/11/20 03:28 Glucose 122 mg/dL (65-100) H 02/11/20 03:28 POC Glucose 87 (70-105) 02/11/20 07:50 Calcium 8.8 mg/dL (8.4-10.2) 02/11/20 03:28 Magnesium 1.60 mg/dL (1.7-2.3) L 02/10/20 12:11 Total Bilirubin 0.50 mg/dL (0.1-1.2) 02/11/20 03:28 AST 15 units/L (5-40) 02/11/20 03:28 ALT 8 units/L (7-56) 02/11/20 03:28 Alkaline Phosphatase 65 units/L (35-129) 02/11/20 03:28 Total Creatine Kinase 101 units/L (30-135) 02/10/20 12:11 Total Protein 7.7 g/dL (6.3-8.2) 02/11/20 03:28 Albumin 4.5 g/dL (3.9-5) 02/11/20 03:28 Albumin/Globulin Ratio 1.4 % 02/11/20 03:28 HCG, Qual Negative (Negative) 02/10/20 12:11 Sanz/IV: Voiding Method Toilet IV Catheter Type [Right INT / Saline Lock Forearm] Active Medications - Current Medications Current Medications: Generic Name Dose Route Start Last Admin Trade Name Freq PRN Reason Stop Dose Admin Acetaminophen 650 mg 02/10/20 16:07 Tylenol PO Q4H PRN Pain MILD(1-3)/Fever >100.5/FINN Amlodipine Besylate 5 mg 02/10/20 17:00 02/10/20 17:02 Amlodipine PO 5 mg QDAY [facility] Administration Aspirin 81 mg 02/10/20 17:00 02/10/20 17:02 Baby Aspirin PO 81 mg QDAY [facility] Administration Carvedilol 12.5 mg 02/10/20 17:00 02/10/20 17:03 Coreg PO 12.5 mg BIDDIAB [facility] Administration Famotidine 20 mg 02/10/20 22:00 02/10/20 22:26 Pepcid PO 20 mg BID [facility] Administration Heparin Sodium (Porcine) 5,000 unit 02/10/20 22:00 02/10/20 22:27 Heparin SUB-Q 5,000 unit Q12HR [facility] Administration Hydralazine HCl 10 mg 02/10/20 16:22 02/10/20 19:25 Apresoline IV 10 mg Q3H PRN Administration Blood Pressure Hydromorphone HCl 0.5 mg 02/10/20 16:07 Dilaudid IV Q3H PRN Pain , Severe (7-10) Insulin Human Lispro 0 unit 02/10/20 22:00 02/10/20 22:28 Humalog SUB-Q Not Given [facility] Protocol Magnesium Oxide 400 mg 02/10/20 14:00 02/10/20 19:21 Mag-Ox PO 400 mg QDAY [facility] Administration Metformin HCl 500 mg 02/11/20 08:00 Glucophage PO BIDDIAB [facility] Ondansetron HCl 4 mg 02/10/20 16:07 02/10/20 19:47 Zofran IV 4 mg Q8H PRN Administration Nausea And Vomiting Oxycodone/Acetaminophen 1 tab 02/10/20 16:07 Percocet 5/325 PO Q6H PRN Pain, Moderate (4-6) Sodium Chloride 10 ml 02/10/20 22:00 02/10/20 22:28 Sodium Chloride Flush Syringe 10 Ml IV 10 ml BID [facility] Administration Sodium Chloride 10 ml 02/10/20 16:07 Sodium Chloride Flush Syringe 10 Ml IV PRN PRN LINE FLUSH Valsartan 160 mg 02/10/20 16:21 02/10/20 22:26 Diovan PO 160 mg Q12HR [facility] Administration
[2020-02-11] MEDS: INSULIN LISPRO 100 UNIT/ML SUB-Q SCH ×4 (08:24→23:50)
[2020-02-11] MEDS: ONDANSETRON 4 MG/2 ML INJ IV PRN (09:01)
[2020-02-11] MEDS: VALSARTAN 160MG TAB PO SCH ×2 (09:02→22:45)
[2020-02-11] MEDS: amLODIPine 5 MG TAB PO SCH (09:02)
[2020-02-11] MEDS: FAMOTIDINE 20 MG TAB PO SCH ×2 (09:02→22:47)
[2020-02-11] MEDS: HEPARIN 5,000 UNIT/1 ML VIAL SUB-Q SCH ×2 (09:03→22:48)
[2020-02-11] MEDS: carvediloL 12.5 MG TAB PO SCH ×2 (09:03→17:18)
[2020-02-11] MEDS: ASPIRIN 81 MG TAB CHEW PO SCH (09:03)
[2020-02-11] MEDS: MAGNESIUM OXIDE 400 MG TAB PO SCH (09:03)
[2020-02-11] MEDS: metFORMIN 500 MG TAB PO SCH ×2 (09:04→17:18)
--- NOTE | 2020-02-11 13:42 | Consultation ---
Medications and Allergies Allergies Allergy/AdvReac Type Severity Reaction Status Date / Time No Known Allergies Allergy Unverified 02/10/20 11:46 Home Medications Medication Instructions Recorded Confirmed Last Taken Type No Known Home Medications [No 02/10/20 02/10/20 Unknown History Reported Home Medications] Active Meds: Active Medications Acetaminophen (Tylenol) 650 mg PO Q4H PRN PRN Reason: Pain MILD(1-3)/Fever >100.5/FINN Amlodipine Besylate (Amlodipine) 5 mg PO QDAY [facility] Last Admin: 02/11/20 09:02 Dose: 5 mg Documented by: Aspirin (Baby Aspirin) 81 mg PO QDAY [facility] Last Admin: 02/11/20 09:03 Dose: 81 mg Documented by: Carvedilol (Coreg) 12.5 mg PO BIDDIAB [facility] Last Admin: 02/11/20 09:03 Dose: 12.5 mg Documented by: Famotidine (Pepcid) 20 mg PO BID [facility] Last Admin: 02/11/20 09:02 Dose: 20 mg Documented by: Heparin Sodium (Porcine) (Heparin) 5,000 unit SUB-Q Q12HR [facility] Last Admin: 02/11/20 09:03 Dose: 5,000 unit Documented by: Hydralazine HCl (Apresoline) 10 mg IV Q3H PRN PRN Reason: Blood Pressure Last Admin: 02/10/20 19:25 Dose: 10 mg Documented by: Hydromorphone HCl (Dilaudid) 0.5 mg IV Q3H PRN PRN Reason: Pain , Severe (7-10) Insulin Human Lispro (Humalog) 0 unit SUB-Q [facility]; Protocol Last Admin: 02/11/20 12:30 Dose: Not Given Documented by: Magnesium Oxide (Mag-Ox) 400 mg PO QDAY [facility] Last Admin: 02/11/20 09:03 Dose: 400 mg Documented by: Metformin HCl (Glucophage) 500 mg PO BIDDIAB [facility] Last Admin: 02/11/20 09:04 Dose: 500 mg Documented by: Ondansetron HCl (Zofran) 4 mg IV Q8H PRN PRN Reason: Nausea And Vomiting Last Admin: 02/11/20 09:01 Dose: 4 mg Documented by: Oxycodone/Acetaminophen (Percocet 5/325) 1 tab PO Q6H PRN PRN Reason: Pain, Moderate (4-6) Sodium Chloride (Sodium Chloride Flush Syringe 10 Ml) 10 ml IV BID [facility] Last Admin: 02/11/20 09:02 Dose: 10 ml Documented by: Sodium Chloride (Sodium Chloride Flush Syringe 10 Ml) 10 ml IV PRN PRN PRN Reason: LINE FLUSH Valsartan (Diovan) 160 mg PO Q12HR [facility] Last Admin: 02/11/20 09:02 Dose: 160 mg Documented by: Physical Examination - Vital Signs Vital Signs: Vital Signs Temp Pulse Resp BP Pulse Ox 97.8 F 92 H 18 256/138 96 02/10/20 11:46 02/10/20 11:46 02/10/20 11:46 02/10/20 11:46 02/10/20 11:46 Results - Laboratory Findings CBC and BMP: 02/10/20 12:11 02/11/20 03:28 Abnormal Lab Findings: Abnormal Labs 02/10/20 02/10/20 02/10/20 12:11 12:11 12:28 Seg Neutrophils % 79.4 H Sodium 135 L Potassium 3.2 L Chloride 97.3 L Carbon Dioxide 20 L Glucose 169 H POC Glucose 119 H Magnesium 1.60 L Total Protein 8.5 H 02/10/20 02/11/20 22:24 03:28 Seg Neutrophils % Sodium 132 L Potassium Chloride 97.3 L Carbon Dioxide Glucose 122 H POC Glucose 115 H Magnesium Total Protein Assessment and Plan 34 YR OLD FEMALE WITH HIST OF HYPERTENSION, BUT NON COMPLIANT WITH ANTI HYPERTENSIVE MEDICATION WHO DEVELOPED AN EPISODE OF HEADACHE ASSOCIATED WITH THROBBING ON THE LEFT TAOISM,NAUSEA,VOMITING AND NUMBNESS ON THE LEFT SIDE OF THE FACE ON WAKING UP FROM SLEEP ON 02/10/2020. PATIENT ALSO HAD PHOTOPHOBIA AND SONOPHOBIA IN ADDITION TO HER OTYHER SYMPTOMS. DENIES PREVIOUS HISTORY OF MIGRAINE HEADACHES. PATIENT DOES NOT HAVE A REGULAR PHYSICIAN AND NO REGULAR FOLLOW UP WITH ANY MEDICAL CARE PROVIDER. SHE IS AND WORKS IN A [employer] AND DENIES ANY ON GOING STRESS AT WORK, WORK UP SHOWS VERY ELEVATED BLOOD PRESSURE, ONE RECORDING WAS 179/104. MRI OF THE BRAIN SHOWED BILATERAL MICRO VASCULAR ISCHAEMIC CHANGES IN BASAL GANGLIA REGION. \ PHYSICAL EXAMINATION. ALERT AND APPROPRIATE.IN NO ACUTE DISTRESS. HEART-NORMAL RATE AND RHYTHM. CAROTIDS- BOTH PALPABLE CRANIAL NERVES - ALL CRANIAL NERVES ARE WITH IN NORMAL LIMIT, EXCEPT FOR MILD LEFT DEANNA FACIAL NUMBNESS MOTOR- NO ASYMMETRY OF STRENGTH IN UPPER OR LOWER EXTREMITIES, WITH NORMAL STRENGTH IN BOTH UPPER AND LOWER EXTREMITIES BOTH DISTALLY AND PROXIMALLY REFLEXES- NORMAL IN BOTH UPPER AND LOWER EXTREMITIES WITH BILATERAL DOWN GOING TOES COORDINATION- NORMAL SENSORY- GROSSLY WITH IN NORMAL LIMIT IMPRESSION 1. PATIENT SEEMS TO HAVE COMPLICATED MIGRAINE 2.POORLY CONTROLLED HYPERTENSION. RECOMMEND. 1. SUMATRIPTAN 50 MG PO AT HEADACHE ONSET, MAY REPEAT IN HR IF NO RESPONSE ( FOR FUTURE EPISODE) 2. AVOID CONTRACEPTIVE PILLS MIGRAINE WITH CONTRACEPTIVE PILLS SIGNIFICANTLY INCREASES THE RISK OF STROKE 3. AVOID CHEESE,CHOCOLATE AND SALTY FOOD 4. TAKE ANTI HYPERTENSIVE MEDICATION REGULARLY.
[2020-02-11 13:45] LABS: Chol/HDL Ratio 3.25 %
--- NOTE | 2020-02-11 15:46 | Vascular Lab Report ---
DUPLEX DOPPLER ULTRASOUND CAROTID, BILATERAL INDICATION / CLINICAL INFORMATION: History of TIA. Altered mental status. Stroke symptoms. COMPARISON: No relevant prior study is available for comparison. FINDINGS: RIGHT CAROTID PLAQUE ESTIMATE: < 50% CCA velocity: 78 cm/sec. ICA peak systolic velocity: 80 cm/sec. ICA/CCA PSV Ratio: 0.8 Right Vertebral Artery: Antegrade flow. LEFT CAROTID PLAQUE ESTIMATE: < 50% CCA velocity: 98 cm/sec. ICA peak systolic velocity: 47 cm/sec. ICA/CCA PSV Ratio: 0.7 Left Vertebral Artery: Antegrade flow. IMPRESSION: 1. Right Internal Carotid Artery: Less than 50% diameter stenosis. 2. Left Internal Carotid Artery: Less than 50% diameter stenosis. No evidence of hemodynamically significant stenosis of either carotid artery. NASCET criteria was us ed for the interpretation of this study. Signer Name: Layne Dewitt MD Signed: 02/11/2020 3:42 PM Workstation Name: [id number]
[2020-02-11] MEDS: MECLIZINE 25 MG TAB PO SCH ×2 (17:18→22:47)
[2020-02-12] MEDS: MECLIZINE 25 MG TAB PO SCH ×2 (05:24→13:54)
[2020-02-12] MEDS: carvediloL 12.5 MG TAB PO SCH (08:37)
[2020-02-12] MEDS: metFORMIN 500 MG TAB PO SCH (08:39)
[2020-02-12] MEDS: INSULIN LISPRO 100 UNIT/ML SUB-Q SCH ×2 (08:39→12:00)
[2020-02-12] MEDS: VALSARTAN 160MG TAB PO SCH (09:07)
[2020-02-12] MEDS: FAMOTIDINE 20 MG TAB PO SCH (09:08)
[2020-02-12] MEDS: MAGNESIUM OXIDE 400 MG TAB PO SCH (09:08)
[2020-02-12] MEDS: ASPIRIN 81 MG TAB CHEW PO SCH (09:08)
[2020-02-12] MEDS: HEPARIN 5,000 UNIT/1 ML VIAL SUB-Q SCH (09:09)
[2020-02-12] MEDS ORDERED: amLODIPine 10 MG TAB PO SCH (10:00)
--- NOTE | 2020-02-12 10:01 | Discharge Summary ---
Providers - Providers Date of Admission: 02/10/20 13:31 Date of discharge: 02/12/20 Attending physician: SHABBIR OCHOA 02/11/20 09:24 Consult to Physician [CONS] Routine Comment: Consulting Provider: ZEE CHOWDHURY Physician Instructions: Reason For Exam: Dizziness Primary care physician: [employer] Hospitalization Condition: Fair Disposition: DC-01 TO HOME OR SELFCARE Core Measure Documentation - Palliative Care Palliative Care/ Comfort Measures: Not Applicable - Core Measures Any of the following diagnoses?: none Exam - Constitutional Vitals: Temp Pulse Resp BP Pulse Ox 98.5 F 80 18 177/109 96 02/12/20 07:30 02/12/20 09:08 02/12/20 08:19 02/12/20 09:08 02/12/20 07:30 Plan Activity: advance as tolerated Diet: low fat, low cholesterol, low salt Plan of Treatment: 1.Follow up with PCP in 1 week. Follow up with: PRIMARY CARE,MD [Primary Care Provider] - 7 Days Prescriptions: amLODIPine 10 mg PO DAILY #30 tablet Meclizine [Antivert] 25 mg PO Q8HR #20 tablet hydrALAZINE [Apresoline TAB] 100 mg PO BID #60 tab carvediloL [Coreg] 12.5 mg PO BIDDIAB #60 tablet metFORMIN [Glucophage] 500 mg PO BIDDIAB #60 tablet Aspirin EC [Halfprin EC] 81 mg PO QDAY #30 tablet. Famotidine [Pepcid] 20 mg PO BID #60 tablet
[2020-02-12 12:05] VITALS: BP 161/90
== END 2020-02-12 16:01 | disposition home or self-care (01) | DRG 65 ==
LOC: ED 11:40 → 4A 13:31
PROVIDERS: ADMIT Internal Medicine; ATTEND Internal Medicine
DX: I63.9 Cerebral infarction, unspecified (principal); E87.1 Hypo-osmolality and hyponatremia; I16.1 Hypertensive emergency; E87.6 Hypokalemia; E83.42 Hypomagnesemia; I10 Essential (primary) hypertension; Z82.49 Family history of ischemic heart disease and other diseases of the circulatory system; R73.9 Hyperglycemia, unspecified; Z91.14 Patient's other noncompliance with medication regimen
CPT/HCPCS: 36415; 70450; 70551; 80053; 80061; 82550; 82962; 83735; 84703; 85025; 85610; 85670; 85730; 93005; 93880; G0378; J0360; J1644; J2405; J2765; J3475; J3480; J7050